=== PATIENT | male | born 1965 | race Caucasian/White ===

== ENCOUNTER → 2019-07-08 | Outpatient (CLI) | payer OTHER ==
[~2019-07-08] MED LIST: OXYCONTIN60 MG PO; PERCOCET 10-321 EACH PO; [UNRECOGNIZED DRUG - REMARK]
== END ==
LOC: CAT 09:38
DX: J43.9 Emphysema, unspecified (principal); K76.89 Other specified diseases of liver; I70.0 Atherosclerosis of aorta; I70.8 Atherosclerosis of other arteries; M48.54XA Collapsed vertebra, not elsewhere classified, thoracic region, initial encounter for fracture; Z98.890 Other specified postprocedural states